=== PATIENT | female | born 2000 | race Two or more races ===

== ENCOUNTER → 2024-08-14 | Outpatient (CLI) | payer MEDICAID, SELFPAY ==
--- NOTE | 2024-08-14 16:07 | XR_ITS ---
Examination: Abdomen AP single view Technique: AP portable supine abdomen, single view Exam date and time: August 14, 2024 1634 hrs. Indications: Right flank pain this week. Findings: Large, 8 cm staghorn calculus right kidney replacing the tail cell system No ureteral calculi Abundant stool throughout the colon Impression: Very large right renal staghorn calculus
== END | disposition home or self-care (01) ==
PROVIDERS: Referring Provider Surgery; Visit Provider Surgery
DX: N20.0 Calculus of kidney (principal)
CPT/HCPCS: 74018